=== PATIENT | male | born 1995 | race Two or more races ===

== ENCOUNTER 2021-11-09 19:27 | Emergency (ER) | payer OTHER, MEDICAID ==
[~2021-11-09] VITALS: Ht 177.8 cm; Wt 61.2 kg
[2021-11-09 19:38] VITALS: BP 102/65
[2021-11-09] MEDS ORDERED: ACETAMINOPHEN 325 MG TAB PO ONE (20:00)
[2021-11-09 20:46] LABS: Basophils # (auto) 0 10 ^3/uL (0-0.2); Eosinophils # (auto) 0 10 ^3/uL (0-0.8); Hemoglobin 13.7 g/dL (13.5-17.5); Monocytes # (auto) 0.8 10 ^3/uL (0-1.3); Nucleated Red Blood Cells % 0.1 %
[2021-11-09 20:48] LABS: Basophils % (auto) 0.7 % (0.0-2.0); Eosinophils % (auto) 0.1 % (0.0-7.0); Hematocrit 40.9 % (41.0-53.0); Lymphocytes # (auto) 1.7 10 ^3/uL (0.4-5.4); Mean Corpuscular Hemoglobin 27.1 pg (28.0-32.0); Mean Corpuscular Hgb Conc. 33.5 g/dL (32.0-36.0); Mean Corpuscular Volume 81.2 fL (80.0-100.0); Monocytes % (auto) 10.2 % (0.0-12.0); Red Blood Cells 5.04 10^6/uL (4.5-5.90); Red Cell Distribution Width 13.9 % (11.8-14.3); White Blood Cell 7.6 10^3/uL (4.4-10.8)
[2021-11-09 21:03] LABS: Albumin 3.7 g/dL (3.4-5.0); Calcium 8.7 mg/dL (8.5-10.1); Potassium 3.5 mmol/L (3.5-5.1)
[2021-11-09 21:06] LABS: BUN/Creatinine Ratio 6.7; Bilirubin, Total 1.2 mg/dL (0.2-1.0); Total Protein 8.1 g/dL (6.4-8.2)
[2021-11-09] MEDS ORDERED: ONDA-144 PO (21:31)
[2021-11-09] MEDS ORDERED: AZIT1POW PO (21:31)
[2021-11-09] MEDS ORDERED: IBUPROFEN 600 MG TAB PO ONE (23:30)
== END 2021-11-09 23:30 | disposition home or self-care (01) ==
LOC: ER 19:27
DX: J18.9 Pneumonia, unspecified organism (principal); R11.2 Nausea with vomiting, unspecified; Z20.822 Contact with and (suspected) exposure to COVID-19
CPT/HCPCS: 36415; 71046; 80053; 85025; 87804

== ENCOUNTER 2023-11-04 19:23 | Emergency (ER) | payer MEDICAID, OTHER ==
[~2023-11-04] VITALS: Ht 177.8 cm; Wt 65.9 kg
[~2023-11-04 19:23] MED LIST: AZIT1POW PO; ONDA-144 PO
[2023-11-04] MEDS: LIDOCAINE VISCOUS 2% 15ML UD PO ONE (21:03)
[2023-11-04] MEDS: MAALOX PLUS or MAALOX 30 ML PO ONE (21:03)
[2023-11-04] MEDS: PANTOPRAZOLE 40 MG TAB PO ONE (21:03)
[2023-11-04] MEDS ORDERED: OMEP-335 PO (21:30)
[2023-11-04 21:56] VITALS: BP 115/83; PULSE 62; RESP 18; TEMP 98; O2SAT 97
== END 2023-11-04 21:57 | disposition home or self-care (01) ==
LOC: ER 19:23
DX: K25.9 Gastric ulcer, unspecified as acute or chronic, without hemorrhage or perforation (principal)